=== PATIENT | female | born 1945 | race Caucasian/White ===

== ENCOUNTER 2019-03-19 11:34 | Outpatient (REF) | payer MEDICARE, OTHER, SELFPAY | END 2019-03-19 11:54 | LOC: NCHCN 11:34 | PROVIDERS: PCP Internal Medicine; Visit Provider Nurse Practitioner Community Health | DX: R35.0 Frequency of micturition (principal) | CPT/HCPCS: 87077; 87086; 87186 ==

== ENCOUNTER 2019-12-24 14:52 | Outpatient (REF) | payer MEDICARE, OTHER, SELFPAY ==
[2019-12-24 22:55] LABS: HCT 46.7 % (36.0-46.0); HGB 14.9 g/dL (11.2-15.7); MCH 30.5 pg (27.0-33.0); MCHC 31.9 % (32.0-36.0); MCV 95.7 fL (80-95); Platelet Count 246 10^3/uL (130-400); RBC 4.88 10^6/uL (3.93-5.22); RDW 13.6 % (11.7-14.6); RDW-SD 48.5 fL; WBC 6.09 10^3/uL (4.4-10.8)
[2019-12-24 23:07] LABS: ALT 25 U/L (14-59); AST 23 U/L (15-37); Alkaline Phosphatase 65 U/L (46-116); BUN 15 mg/dL (7-18); Bilirubin, Total 0.5 mg/dL (0.2-1.0); CREATININE 0.87 mg/dL (0.55-1.02); Calcium 9.3 mg/dL (8.5-10.1); Calculated LDL 156 mg/dL (<100); Chloride 103 mmol/L (98-107); Cholesterol 218 mg/dL (<200); Glucose 89 mg/dL (74-106); HDL Cholesterol 34 mg/dL (40-60); Potassium 4.2 mmol/L (3.5-5.1); Sodium 140 mmol/L (136-145); Total Protein 7.5 g/dL (6.4-8.2); Triglyceride 144 mg/dL (<150)
== END 2019-12-24 15:12 ==
LOC: NCHCN 14:52
PROVIDERS: PCP Internal Medicine; Visit Provider Internal Medicine
DX: E78.5 Hyperlipidemia, unspecified (principal); F10.10 Alcohol abuse, uncomplicated
CPT/HCPCS: 80053; 80061; 85027; 83874

== ENCOUNTER 2020-12-20 08:26 | Outpatient (REF) | payer MEDICARE, OTHER, SELFPAY ==
[2020-12-20 15:24] LABS: Calculated LDL 151 mg/dL (<100); Cholesterol 210 mg/dL (<200); HDL Cholesterol 32 mg/dL (40-60); Triglyceride 139 mg/dL (<150)
== END 2020-12-20 08:27 | disposition home or self-care (01) ==
LOC: NCHCN 08:26
PROVIDERS: PCP Internal Medicine; Visit Provider Internal Medicine
DX: E78.5 Hyperlipidemia, unspecified (principal)
CPT/HCPCS: 80061

== ENCOUNTER 2021-12-23 16:32 | Outpatient (REF) | payer MEDICARE, OTHER, SELFPAY ==
[2021-12-23 18:01] LABS: ALT 28 U/L (14-59); AST 33 U/L (15-37); Albumin 3.8 g/dL (3.4-5.0); Alkaline Phosphatase 68 U/L (46-116); Anion Gap 8.1 mmol/L (3-11); BUN 14 mg/dL (7-18); Bilirubin, Total 0.7 mg/dL (0.2-1.0); CO2 26.9 mmol/L (21.0-32.0); CREATININE 0.8 mg/dL (0.55-1.02); Calcium 9.4 mg/dL (8.5-10.1); Calculated LDL 86 mg/dL (<100); Chloride 105 mmol/L (98-107); Cholesterol 139 mg/dL (<200); Estimated GFR 77.27 (mL/min/1.73m2); Glucose 106 mg/dL (74-106); HDL Cholesterol 37 mg/dL (40-60); Potassium 4.3 mmol/L (3.5-5.1); Sodium 140 mmol/L (136-145); Total Protein 7.5 g/dL (6.4-8.2); Triglyceride 84 mg/dL (<150)
== END 2021-12-23 16:33 | disposition home or self-care (01) ==
LOC: NCHCN 16:32
PROVIDERS: PCP Internal Medicine; Visit Provider Internal Medicine
DX: E78.5 Hyperlipidemia, unspecified (principal); F10.10 Alcohol abuse, uncomplicated; E78.6 Lipoprotein deficiency; Z00.00 Encounter for general adult medical examination without abnormal findings
CPT/HCPCS: 80053; 80061

== ENCOUNTER 2023-12-28 09:13 | Outpatient (REF) | payer MEDICARE, OTHER, SELFPAY ==
[2023-12-28 15:18] LABS: ALT 26 U/L (14-59); AST 26 U/L (15-37); Albumin 3.9 g/dL (3.4-5.0); Alkaline Phosphatase 70 U/L (46-116); Anion Gap 9.6 mmol/L (3-11); BUN 13 mg/dL (7-18); Bilirubin, Total 0.72 mg/dL (0.2-1.0); CO2 28.4 mmol/L (21.0-32.0); CREATININE 0.9 mg/dL (0.55-1.02); Calcium 9.6 mg/dL (8.5-10.1); Calculated LDL 80 mg/dL (<100); Chloride 105 mmol/L (98-107); Cholesterol 144 mg/dL (<200); Estimated GFR 66.26 (mL/min/1.73m2); Glucose 90 mg/dL (74-106); HDL Cholesterol 46 mg/dL (40-60); Potassium 3.7 mmol/L (3.5-5.1); Sodium 143 mmol/L (136-145); Total Protein 7.6 g/dL (6.4-8.2); Triglyceride 92 mg/dL (<150)
== END 2023-12-28 09:14 | disposition home or self-care (01) ==
LOC: NCHCN 09:13
PROVIDERS: PCP Internal Medicine; Visit Provider Internal Medicine
DX: E78.5 Hyperlipidemia, unspecified (principal); F10.10 Alcohol abuse, uncomplicated
CPT/HCPCS: 80053; 80061

== ENCOUNTER 2025-01-05 11:00 | Outpatient (REF) | payer MEDICARE, OTHER, SELFPAY ==
[2025-01-05 15:28] LABS: HCT 47.7 % (36.0-46.0); HGB 15.6 g/dL (11.2-15.7); MCH 31.3 pg (27.0-33.0); MCHC 32.7 % (32.0-36.0); MCV 96 fL (80-95); MPV 11.2 fL (8.0-11.0); Platelet Count 223 10^3/uL (130-400); RBC 4.99 10^6/uL (3.93-5.22); RDW 13.9 % (11.7-14.6); RDW-SD 49.0 fL; WBC 5.98 10^3/uL (4.4-10.8)
[2025-01-05 16:41] LABS: Anion Gap 6.4 mmol/L (3-11); BUN 13 mg/dL (7-18); CO2 30.6 mmol/L (21.0-32.0); Calcium 9.5 mg/dL (8.5-10.1); Calculated LDL 113 mg/dL (<100); Chloride 103 mmol/L (98-107); Cholesterol 174 mg/dL (<200); Estimated GFR 75.84 (mL/min/1.73m2); Glucose 91 mg/dL (74-106); HDL Cholesterol 39 mg/dL (>or=50); Potassium 4.3 mmol/L (3.5-5.1); Sodium 140 mmol/L (136-145); Triglyceride 110 mg/dL (<150)
== END 2025-01-05 11:01 | disposition home or self-care (01) ==
LOC: NCHCN 11:00
PROVIDERS: PCP Internal Medicine; Visit Provider Internal Medicine
DX: E78.5 Hyperlipidemia, unspecified (principal); R00.2 Palpitations
CPT/HCPCS: 80048; 80061; 85027